=== PATIENT | male | born 1970 | race Hispanic/Latino ===

== ENCOUNTER 2023-10-21 17:10 | Emergency (ER) | payer OTHER, SELFPAY ==
[2023-10-21] MEDS ORDERED: Boostrix 0.5 ML (Tdap) VIAL (>/=7 yrs of age) ONE (17:49)
[2023-10-21] MEDS ORDERED: Bacitracin 1 PK ONE (17:49)
[2023-10-21] MEDS ORDERED: Lidocaine 1% (PF) 30 ML VIAL ONE (17:49)
== END 2023-10-21 18:50 | disposition home or self-care (01) ==
LOC: NAV ERS 17:10
DX: S67.21XA Crushing injury of right hand, initial encounter (principal); S61.411A Laceration without foreign body of right hand, initial encounter; W26.8XXA Contact with other sharp object(s), not elsewhere classified, initial encounter; Z23 Encounter for immunization
CPT/HCPCS: 12002; 90471; 90715; J2001